=== PATIENT | male | born 1965 | race Caucasian/White ===

== ENCOUNTER 2018-03-04 05:18 | Day surgery (SDC) | payer OTHER ==
[~2018-03-04] VITALS: Ht 188 cm; Wt 177.8 kg
--- NOTE | ~2018-03-04 | H ---
[facility] [place] [address] HISTORY AND PHYSICAL Name: KENDALL WICK Room #: 150-2 [facility]..#: [id number] Admission: 03/04/18 Attend Phys: Qasim Mccormack MD Discharge: Date of : 65 Report #: [id number] THIS REPORT FOR: //name// CC: FAM unknown Qasim Mccormack DATE OF SERVICE: 03/04/2018 DATE OF SURGERY: 03/04/2018 CHIEF COMPLAINT: Eustachian tube dysfunction, chronic otitis media with effusion. HISTORY OF PRESENT ILLNESS: The patient is a 52-year-old gentleman with a longstanding history of eustachian tube dysfunction, having had multiple sets of PE tubes placed in the past. His last set of PE tubes were placed back earlier this year. He had had several sets placed in a short period of time. We discussed the options of other surgical interventions with possible eustachian tube dilation as an option in addition to placement of PE tubes at the same time. This was originally been scheduled for back in June; however, he felt much better, so at that point in time, he decided to wait. He returned to see me back in December with continued fluctuation of his hearing. Examination back in December did show evidence again that of eustachian tube dysfunction. I discussed with him again the options of lifelong PE tube placements, reconstructive surgery including tympanoplasties with cartilage grafts, possible eustachian tube dilations with PE tubes to see if he can get longer relief. I have discussed with him the risks and benefits of eustachian tube dilation, in fact that it may or may not be technically feasible. He understands the risks involved and wished to proceed forward. ALLERGIES TO MEDICATION: None. MEDICATIONS ON ADMISSION: Meloxicam 50 mg daily as needed. PAST MEDICAL AND SURGICAL HISTORY: Notable for multiple sets of PE tubes placed, mostly in the office and a previous lap band surgery. FAMILY HISTORY: Notable for bone cancer in his father. SOCIAL HISTORY: Unremarkable. REVIEW OF SYSTEMS: Negative for any known GI, , cardiovascular or pulmonary history. PHYSICAL EXAMINATION: GENERAL: He appears his stated age. [facility] [address] [place] [address] HISTORY AND PHYSICAL Name: KENDALL WICK Room #: 150-2 [facility]..#: [id number] Admission: 03/04/18 Attend Phys: Qasim Mccormack MD Discharge: Date of : 65 Report #: [id number] VITAL SIGNS: Height 6 feet 2 inches and weight 350 pounds. HEENT: As already described above. Oral cavity and pharynx is normal. NECK: Normal. CHEST: Clear. CARDIOVASCULAR: Regular rhythm. ASSESSMENT: History of eustachian tube dysfunction. PLAN: For placement of PE tubes and eustachian tube dilation. <ELECTRONICALLY SIGNED> By: Qasim Mccormack MD 03/04/18 0731 [id number] 1751 Qasim Mccormack MD /ruben
--- NOTE | ~2018-03-04 | O ---
[facility] [place] [address] OPERATIVE REPORT Name: KENDALL WICK Room #: [facility].#: [id number] Admission: 03/04/18 Attend Phys: Qasim Mccormack MD Discharge: 03/04/18 Date of : 65 Report #: [id number] THIS REPORT FOR: //name// CC: Sandeep Mccormack DATE OF SERVICE: 03/04/2018 PREOPERATIVE DIAGNOSIS: Chronic otitis media with effusion. POSTOPERATIVE DIAGNOSES: 1. Chronic otitis media with effusion. 2. Nasopharyngeal mass. SURGEON: Qasim Mccormack M.D. ANESTHESIA: General LMA. PROCEDURE PERFORMED: Bilateral myringotomy with insertion of tiny ET tubes and nasal endoscopy. FINDINGS: Serous effusions noted in each middle ear space with significant retraction of the tympanic membranes. Nasopharyngeal mass was noted and appeared to be substantial lymphoid aggregates with some purulence coating these. Tissue is hyperemic in nature. TECHNIQUE: After obtaining consent, the patient was brought to the operative suite, appropriate time out was performed. General LMA anesthesia was obtained. After an adequate depth of anesthetic was obtained, cottonoids with Afrin were placed inside the nares for vasoconstriction of the turbinate. A 0 degree endoscope was placed through the nares to the nasopharyngeal region. At that point, I identified a large nasopharyngeal mass that seemed to be based off the posterior nasopharyngeal wall essentially filling both nasal choanae. Attempts with the use of a [place] double ball retractor and frontal sinus probe to move the mass out of the way to see the lateral nasal rose was without any success. Some of the mass was attached to the lateral nasal wall as well. The patient had not been consented for biopsy removal of the nasopharyngeal mass and previous evaluation of his nasopharynx in the office had not revealed this mass to be present, although the nasopharynx had not been visualized this calendar year. I therefore elected not to proceed with a balloon dilation of the eustachian tubes. The operating scope was brought into field. The right ear canal was intubated and debris was removed. A radial myringotomy incision was made with evacuation of a seromucinous effusion. Tiny ET-tube was placed atraumatically followed by Ciprodex drops instilled in the canal and a cotton ball in the meatal opening. [address] [address] OPERATIVE REPORT Name: KENDALL WICK Room #: [facility].#: [id number] Admission: 03/04/18 Attend Phys: Qasim Mccormack MD Discharge: 03/04/18 Date of : 65 Report #: [id number] Attention was turned to the left ear where similar procedure was performed. He was then returned back to anesthesia where he was allowed to awaken and taken to recovery room in stable condition. ESTIMATED BLOOD LOSS: Scant. By: [id number] Qasim Mccormack MD /ruben
[2018-03-04 07:21] VITALS: BP 164/88
[2018-03-04 10:04] VITALS: BP 164/88
== END 2018-03-04 10:35 | disposition home or self-care (01) ==
LOC: OR 05:18 → TBA 05:18 → OR 09:38
DX: H65.493 Other chronic nonsuppurative otitis media, bilateral (principal); J34.89 Other specified disorders of nose and nasal sinuses; F17.210 Nicotine dependence, cigarettes, uncomplicated; Z88.8 Allergy status to other drugs, medicaments and biological substances; Z80.8 Family history of malignant neoplasm of other organs or systems; Z98.890 Other specified postprocedural states; Z98.84 Bariatric surgery status
CPT/HCPCS: 50010; 50101; 51237; 51305; 62110; 62900; 70005

== ENCOUNTER → 2018-06-08 | Outpatient (CLI) | payer OTHER | LOC: MRI 10:21 | DX: J34.1 Cyst and mucocele of nose and nasal sinus (principal); H74.8X3 Other specified disorders of middle ear and mastoid, bilateral; J34.89 Other specified disorders of nose and nasal sinuses ==